=== PATIENT | female | born 1970 | race African-American/Black ===

== ENCOUNTER 2018-10-28 06:31 | Observation (INO) | payer OTHER ==
[2018-10-25 13:01] LABS: BASOPHILS # (AUTO) 0.1 (0.0-0.1); BASOPHILS % 0.6 % (0.0-1.0); EOSINOPHILS # (AUTO) 0.1 (0.0-0.4); EOSINOPHILS % 1.1 % (0.0-6.0); HEMATOCRIT 44.3 % (34.2-44.1); HEMOGLOBIN 14.4 g/dL (12.0-16.0); LYMPHOCYTES # (AUTO) 2.4 (1.0-3.2); LYMPHOCYTES % 29.3 % (18.0-39.1); MEAN CORPUSCULAR HEMOGLOBIN 28.9 pg (28-32); MEAN CORPUSCULAR HGB CONC 32.5 g/dL (31-35); MEAN CORPUSCULAR VOLUME 88.8 fL (81-99); MONOCYTES # (AUTO) 0.6 (0.2-0.8); MONOCYTES % 7.4 % (4.4-11.3); NEUTROPHILS # (AUTO) 4.9 (2.1-6.9); NEUTROPHILS % 61.4 % (38.7-80.0); PLATELET COUNT 300 x10e3/uL (140-360); RED BLOOD COUNT 4.99 x10e6/uL (3.6-5.1); RED CELL DISTRIBUTION WIDTH 13.1 % (11.7-14.4)
[2018-10-25 13:38] LABS: BLOOD UREA NITROGEN 8 mg/dL (7-26); BUN/CREATININE RATIO 11 (6-25); CALCIUM 10.6 mg/dL (8.4-10.2); CARBON DIOXIDE 21 mmol/L (22-29); CHLORIDE 104 mmol/L (98-107); EST GLOMERULAR FILTRATION RATE > 60 ML/MIN (60-); GLUCOSE 93 mg/dL (74-118); SODIUM 139 mmol/L (136-145)
[~2018-10-28] VITALS: Ht 157.5 cm; Wt 82.6 kg
[~2018-10-28 06:31] MED LIST: AMLODIPINE BESYL5 MG PO; BENICAR20 MG PO; METFORMIN HCL500 MG PO; METOPROLOL TART25 MG PO; TRULICITY SQ
--- OUTSIDE RECORDS SUMMARY | 2018-10-28 06:37 | XMS REPORT | Clinical Summary ---
Author Author [facility] Address Unknown Phone Unavailable Care Team Providers Care Help Desk Team Leader Name Role Phone Dari Carson Patricia B[employer]K [employer]LET BUILDER PCP Allergies Comments Active Allergy Reactions Severity Noted Date Blisters on her mouth Fluconazole Other (See 09/29/2015 Comments) Other reaction(s): Cough Lisinopril 09/29/2015 Skin stern Sulfa (Sulfonamide Other (See 09/29/2015 Antibiotics) Comments) Medications End Date Status Medication Sig Dispensed Refills Start Date Active CONTOUR TEST STRIPS strip USE FOR BLOOD 11 test strips SUGAR TESTING 6 THREE TIMES A DAY FOR 30 DAYS Active olmesartan-hydrochlorothi Take 1 tablet 1 azide (BENICAR HCT) 40-25 by mouth once 7 mg per tablet daily. Active metFORMIN XR Take 1,000 mg 5 (GLUCOPHAGE-XR) 500 mg 24 by mouth 2 7 hr tablet (two) times a day. Active TRULICITY 1.5 mg/0.5 mL INJECT ONCE pen injector SUBCUTANEOUSL 7 Y ONCE EVERY WEEK Active lidocaine HCl (lidocaine) 15 mL by 200 mL 0 2 % solution mucous 8 membrane route every 3 (three) hours as needed (sore throat). Active fluticasone (FLONASE) 50 2 sprays (100 15.8 mL 0 mcg/actuation nasal spray mcg total) by 8 Each Nare route daily. 03/13/2018 sertraline (ZOLOFT) 50 MG Take 1 tablet 30 tablet 0 tablet (50 mg total) 8 by mouth daily. 02/17/2018 ibuprofen (ADVIL,MOTRIN) Take 1 tablet 30 tablet 0 600 MG tablet (600 mg 8 total) by mouth every 6 (six) hours as needed for moderate pain for up to 30 days. 01/23/2018 traMADol (ULTRAM) 50 mg Take 1 tablet 12 tablet 0 tablet (50 mg total) 8 by mouth every 8 (eight) hours as needed for severe pain for up to 5 days. 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 [place] normal physical exam. Low risk surgery planned Diabetes well-controlled. Discussed diet, exercise and weight management Follow-up in the office as needed. Type 2 diabetes mellitus without complication 11/26/2015 Encounters Care Team Description Date Type Specialty Vinny Houston MD Detrusor instability of bladder 05/07/2018 Hospital Radiology Encounter Vinny Houston MD Female urethrocele without uterine prolapse 05/07/2018 Hospital Radiology Encounter Liliam Unger MD Screening breast examination 04/08/2018 Hospital Radiology Encounter Vinny Houston MD Female urethrocele without uterine prolapse (Primary Dx); Detrusor instability of bladder 04/08/2018 Transcribe Access Orders Liliam Unger MD Screening breast examination (Primary Dx) 03/05/2018 Transcribe Access Orders Eddie Segovia MD Left low back pain, unspecified chronicity, with sciatica presence unspecified (Primary Dx); Muscle spasm 01/18/2018 Emergency Emergency Medicine after 10/27/2017 Immunizations Name Administration Dates Next Due FLUZONE QUAD PF 01/18/2017 Hep A / Hep B 03/08/2009, 11/02/2008, 09/15/2008 INFLUENZA QUAD 12/01/2011, 11/19/2010, 10/29/2009, 11/02/2008 Influenza Trivalent 11/04/2015 Pneumococcal 01/19/2017, 04/22/2008 Polysaccharide TD Preservative Free 05/08/2004 Family History Medical History Relation Name Comments Diabetes Maternal Grandmother Hypertension Mother Relation Name Status Comments Father Alive Maternal Grandmother Mother Social History Date Tobacco Use Types Packs/Day Years Used Never Smoker Smokeless Tobacco: Never Used Drinks/Week oz/Week Comments Alcohol Use occ Yes Sex Assigned at Date Recorded Not on file Industry Job Start Date Occupation Not on file Not on file Not on file Travel End Travel History Travel Start No recent travel history available. Last Filed Vital Signs Reading Time Taken Comments Vital Sign 120/82 01/18/2018 3:54 PM [facility]IOR ADVIS[facility] Blood Pressure 98 01/18/2018 3:54 PM SENIOR ADVISORY Pulse 35.9 C (96.6 F) 01/18/2018 3:54 PM SENIOR ADVISORY Temperature 16 01/18/2018 3:54 PM SENIOR ADVISORY Respiratory Rate 97% 01/18/2018 3:54 PM SENIOR ADVISORY Oxygen Saturation - - Inhaled Oxygen Concentration 79.4 kg (175 lb) 01/18/2018 1:20 PM SENIOR ADVISORY Weight 157.5 cm (5' 2") 01/18/2018 1:20 PM SENIOR ADVISORY Height 32.01 01/18/2018 1:20 PM SENIOR ADVISORY Body Mass Index Plan of Treatment Health Maintenance Due Date Last Done Comments DIABETIC FOOT EXAM 1980 URINE MICROALBUMIN 04/10/2017 04/10/2016 DIABETIC RETINAL EYE EXAM 06/04/2017 06/05/2015 INFLUENZA VACCINE 09/19/2018 01/18/2017, 11/04/2015, 11/04/2015, Additional history exists CERVICAL CANCER SCREENING 09/20/2019 09/19/2016, 06/04/2015 Procedures Comments Procedure Name Priority Date/Time Associated Diagnosis US RENAL Routine 05/07/2018 Detrusor instability of 2:57 PM CDT bladder US PELVIC TRANSVAGINAL Routine 05/07/2018 Female urethrocele 2:57 PM CDT without uterine prolapse US PELVIC TRANSABDOMINAL Routine 05/07/2018 Female urethrocele 2:57 PM CDT without uterine prolapse MAMMO BREAST SCREEN Routine 04/08/2018 Screening breast TOMOSYNTHESIS BILATERAL 7:46 AM SENIOR ADVISORY examination ESTIMATED GFR STAT 01/18/2018 1:58 PM SENIOR ADVISORY LIPASE LEVEL STAT 01/18/2018 1:58 PM SENIOR ADVISORY COMPREHENSIVE METABOLIC STAT 01/18/2018 PANEL 1:58 PM SENIOR ADVISORY HC COMPLETE BLD COUNT STAT 01/18/2018 W/AUTO DIFF 1:58 PM SENIOR ADVISORY URINALYSIS SCREEN AND STAT 01/18/2018 MICROSCOPY, WITH REFLEX 1:49 PM SENIOR ADVISORY TO CULTURE after 10/27/2017 Results * US Renal (05/07/2018 2:57 PM CDT) Specimen Narrative Performed At EXAMINATION:US RENAL [facility] CLINICAL HISTORY:N32.81 Overactive bladder, n32.81 over active bladder COMPARISON:None. IMPRESSION: The right kidney asoggbvi09.9 cm in length. The left kidney noorvuvb10.3 cm in length. There is no evidence of renal mass, stone, cyst, or hydronephrosis. Echogenicity is normal. [id number] Procedure Note Interface, Radiology Results Incoming - 05/07/2018 3:03 PM CDT EXAMINATION: US RENAL CLINICAL HISTORY: N32.81 Overactive bladder, n32.81 over active bladder COMPARISON: None. IMPRESSION: The right kidney measures 10.9 cm in length. The left kidney measures 11.3 cm in length. There is no evidence of renal mass, stone, cyst, or hydronephrosis. Echogenicity is normal. [id number] Performing Organization Address City/State/Zipcode Phone Number [facility] [address] [place] [address] * US Pelvic Transabdominal (05/07/2018 2:57 PM CDT) Specimen Narrative Performed At EXAMINATION:US [facility]DOM[facility]AL [facility] CLINICAL [facility]:N81.0 Urethrocele, n81.10 COMPARISON:None. TECHNIQUE:Transabdominal and endovaginal sonographic images of the pelvis were obtained. Grayscale, color Doppler, and spectral waveform analysis of the ovarian vessels was performed. IMPRESSION: Uterus: Status post hysterectomy. Ovaries: Not visualized. No pelvic mass or fluid collection is seen. Procedure Note Interface, Radiology Results Incoming - 05/07/2018 3:04 PM CDT EXAMINATION: US PELVIC TRANSABDOMINAL CLINICAL HISTORY: N81.0 Urethrocele, n81.10 COMPARISON: None. TECHNIQUE:Transabdominal and endovaginal sonographic images of the pelvis were obtained. Grayscale, color Doppler, and spectral waveform analysis of the ovarian vessels was performed. IMPRESSION: Uterus: Status post hysterectomy. Ovaries: Not visualized. No pelvic mass or fluid collection is seen. Performing Organization Address [facility] Phone Number [facility] [address] [place] [address] * US Pelvic Transvaginal (05/07/2018 2:57 PM CDT) Specimen Narrative Performed At EXAMINATION:US PELVIC [facility]SVAGINAL [facility] CLINICAL H[facility]ORY:N81.0 Urethrocele, n81.10 COMPARISON:None. TECHNIQUE:Transabdominal and endovaginal sonographic images of the pelvis were obtained. Grayscale, color Doppler, and spectral waveform analysis of the ovarian vessels was performed. IMPRESSION: Uterus: Status post hysterectomy. Ovaries: Not visualized. No pelvic mass or fluid collection is seen. Procedure Note [facility], Radiology Results Incoming - 05/07/2018 3:04 PM CDT EXAMINATION: US PELVIC TRANSVAGINAL CLINICAL HISTORY: N81.0 Urethrocele, n81.10 COMPARISON: None. TECHNIQUE:Transabdominal and endovaginal sonographic images of the pelvis were obtained. Grayscale, color Doppler, and spectral waveform analysis of the ovarian vessels was performed. IMPRESSION: Uterus: Status post hysterectomy. Ovaries: Not visualized. No pelvic mass or fluid collection is seen. Performing Organization Address [facility] Phone Number [facility] [address] [place] [address] * Mammo Breast Screen Tomosynthesis Bilateral (04/08/2018 7:46 AM SENIOR ADVISORY) Specimen Narrative Performed At PROCEDURE: MAMMO BREAST SCREEN TOMOSYNTHESIS BILATERAL [facility] Computer aided detection was utilized for the interpretation of the digital bilateral screening mammography with tomosynthesis. COMPARISON: There is no prior studies available for comparison. DENSITY: There are scattered areas of fibroglandular density. There is no suspicious masses, architectural distortions or grouped calcifications. IMPRESSION:No mammographic evidence of malignancy. RECOMMENDATION: Comparison with physical exam and annual screening mammography. BI-RADS 1:NEGATIVE This facility is accredited by the [employer] for Mammography. A negative x-ray report should not delay biopsy if a dominant or clinically suspicious mass is present.Not all cancers are identified by x-ray. [id number] Performing Organization Address City/State/Zipcode Phone Number [facility] [address] [place] [address] * Estimated GFR (01/18/2018 1:58 PM SENIOR ADVISORY) Pathologist [facility] Estimated GFR >=90 mL/min/1.73 m2 [place] Comment: [facility] G1 >=90 Normal or high G2 60-89Mildly decreased O3x30-87 Mildly to moderately decreased [id number] Moderately to severely decreased G4 15-29Severely decreased G5 <15Kidney failure The eGFR was calculated using the Chronic Kidney Disease Epidemiology Collaboration (CKD-EPI) equation. Interpretation is based on recommendations of the National Kidney Foundation-Kidney Disease Outcomes Quality Initiative (NKF-KDOQI) published in 2014. Specimen Plasma specimen Performing Organization Address City/State/Zipcode Phone Number [facility] [address] [place] [address] PATHOLOGY AND GENOMIC MEDICINE [place] [address] [place], [place] [id number] [place] [address] * CBC with platelet and differential (01/18/2018 1:58 PM SENIOR ADVISORY) [facility] WBC 9.7 4.2 - 11.0 k/uL [facility] RBC 4.71 4.04 - 5.86 m/uL [facility] HGB 13.9 11.5 - 15.3 g/dL [facility] HCT 42.9 34.0 - 45.0 % [facility] MCV 91.1 80.0 - 98.0 fL [facility] MCH 29.5 27.0 - 34.0 pg [facility] MCHC 32.4 31.5 - 36.5 g/dL [facility] RDW - SD 41.1 37.0 - 51.0 fL [facility] MPV 10.2 7.4 - 10.4 fL [facility] Platelet count 288 150 - 400 k/uL [facility] Nucleated RBC 0.00 /100 WBC [facility] Neutrophils 64.7 36.0 - 66.0 % [facility] Lymphocytes 26.9 24.0 - 44.0 % [facility] Monocytes 6.8 (H) 0.0 - 6.0 % [facility] Eosinophils 0.9 0.0 - 6.0 % [facility] Basophils 0.3 0.0 - 1.2 % [facility] Immature 0.4 0.0 - 1.0 % [place] granulocytes [facility] Specimen Blood Performing Organization Address City/[facility] Centercode Phone Number [facility] [place] [address] PATHOLOGY AND GENOMIC MEDICINE [address] * Lipase level (01/18/2018 1:58 PM SENIOR ADVISORY) [facility] Lipase 35 13 - 60 U/L [facility] Specimen Plasma specimen Performing Organization Address City/[facility] Centercode Phone Number [facility] [place] [address] PATHOLOGY AND GENOMIC MEDICINE [address] * Comprehensive metabolic panel (01/18/2018 1:58 PM SENIOR ADVISORY) [facility] Sodium 141 135 - 150 mEq/L [facility] Potassium 4.0 3.5 - 5.0 mEq/L [facility] Chloride 100 98 - 112 mEq/L [facility] CO2 26 24 - 31 mmol/L [facility] Anion gap 15@ANIO 7 - 15 mEq/L [facility] BUN 9 7 - 18 mg/dL [facility] Creatinine 0.60 0.50 - 0.90 mg/dL [facility] Glucose 105 (H) 65 - 100 mg/dL [facility] Calcium 10.0 8.3 - 10.2 mg/dL [facility] Protein 8.0 6.3 - 8.3 g/dL [facility] Albumin 4.3 3.5 - 5.0 g/dL [facility] A/G ratio 1.2 0.7 - 3.8 [facility] Alkaline 80 0 - 104 U/L [place] phosphatase [facility] AST 24 10 - 35 U/L [facility] ALT 24 5 - 50 U/L [facility] Total bilirubin 0.4 0.2 - 1.2 mg/dL [facility] Specimen Plasma specimen Performing Organization Address City/[facility] Centercode Phone Number [facility] [address] [place] [phone] PATHOLOGY AND GENOMIC MEDICINE [facility] [address] * Urinalysis screen and microscopy, with reflex to culture (01/18/2018 1:49 PM SENIOR ADVISORY) Specimen site Clean catch [facility] Color, UA Straw [facility] Appearance, UA Clear [facility] Specific 1.005 1.001 - 1.035 [place] gravity, [facility] pH, UA 5.0 5.0 - 8.5 [facility] Protein, UA Negative Negative [facility] Glucose, UA Negative Negative [facility] Ketones, UA Negative Negative [facility] Bilirubin, UA Negative Negative [facility] Blood, UA Negative Negative [facility] Nitrite, UA Negative Negative [facility] Urobilinogen, Negative <2.0 [facility] Leukocyte Negative Negative [place] esterase, UA [facility] Epithelial Few /HPF [place] cells, UA [facility] WBC, UA <1 0 - 5 /HPF [facility] RBC, UA <1 0 - 5 /HPF [facility] Bacteria, UA Trace None seen [facility] Yeast, UA None seen [facility] Yeast with None seen [place] [facility] Specimen Urine Performing Organization Address City/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
[2018-10-28] MEDS ORDERED: DEXAMETHASONE SOD PHOS 10 MG/1 ML VIAL ONE (06:44)
[2018-10-28] MEDS ORDERED: CELECOXIB 200 MG CAP ONE (06:44)
[2018-10-28] MEDS ORDERED: CEFAZOLIN SOD 1 GM/NS 50ML 100 ML IV ONE (06:45)
[2018-10-28] MEDS ORDERED: GABAPENTIN 300 MG CAP ONE (06:45)
[2018-10-28] MEDS ORDERED: ROPIVACAINE 246.25 MG, EPINEPHRINE HCL 1:1000 1ML 0.5 MG, CLONIDINE HCL 0.08 MG, KETORO... INJ ONE ×5 (07:30)
[2018-10-28] MEDS ORDERED: TRANEXAMIC ACID 1,000 MG/10 ML ML ONE (08:34)
[2018-10-28] MEDS ORDERED: VANCOMYCIN HCL 1,000 MG ONE (08:34)
[2018-10-28] MEDS ORDERED: SODIUM CHLORIDE 0.9% 500ML 500 ML ONE (08:34)
[2018-10-28] MEDS ORDERED: BACITRACIN 50,000 UNIT VIAL ONE (08:35)
[2018-10-28] MEDS: SODIUM CHLORIDE 0.9% 1000ML 1,000 ML IV SCH ×3 (10:29→20:29)
[2018-10-28] MEDS ORDERED: PROMETHAZINE HCL (IM) 25 MG/ML VIAL INJ PRN (10:30)
[2018-10-28] MEDS ORDERED: ONDANSETRON HCL INJ 2MG/ML 2ML 2 MG/ML VIAL IV PRN (10:30)
[2018-10-28] MEDS ORDERED: DIPHENHYDRAMINE HCL INJ 50 MG/ML VIAL IM/IV PRN (10:30)
[2018-10-28] MEDS ORDERED: DOCUSATE SODIUM 100 MG CAP PO PRN (10:30)
[2018-10-28] MEDS ORDERED: HYDROCODONE/APAP 5MG-325MG TAB PO PRN (10:30)
[2018-10-28] MEDS ORDERED: KETOROLAC TROMETHAMINE 30 MG/ML VIAL IV PRN (10:30)
[2018-10-28] MEDS ORDERED: ZOLPIDEM TARTRATE 5 MG TAB PO PRN (10:30)
[2018-10-28] MEDS ORDERED: ACETAMINOPHEN 650 MG SUPP PR PRN (10:30)
--- OUTSIDE RECORDS SUMMARY | 2018-10-28 10:58 | XMS REPORT | Clinical Summary ---
Author Author [employer] Organization [employer] Address Unknown Phone Unavailable Care Team Providers Care Regional Extension Service Specialist Name Role Phone Dari Carson Patricia TRANSIT PLANNING MANAGER PCP Allergies Comments Active Allergy Reactions Severity [...] acute complaints who presents for preop clearance. [place] normal physical exam. Low risk surgery planned [...] Comments Vital Sign 120/82 01/18/2018 3:54 PM INJECTION MOLDING MACHINE OPERATOR Blood Pressure 98 01/18/2018 3:54 PM INJECTION MOLDING MACHINE OPERATOR Pulse 35.9 C (96.6 F) 01/18/2018 3:54 PM INJECTION MOLDING MACHINE OPERATOR Temperature 16 01/18/2018 3:54 PM INJECTION MOLDING MACHINE OPERATOR Respiratory Rate 97% 01/18/2018 3:54 PM INJECTION MOLDING MACHINE OPERATOR Oxygen Saturation - - Inhaled Oxygen Concentration 79.4 kg (175 lb) 01/18/2018 1:20 PM INJECTION MOLDING MACHINE OPERATOR Weight 157.5 cm (5' 2") 01/18/2018 1:20 PM INJECTION MOLDING MACHINE OPERATOR Height 32.01 01/18/2018 1:20 PM INJECTION MOLDING MACHINE OPERATOR Body Mass Index Plan of Treatment Health [...] 04/08/2018 Screening breast TOMOSYNTHESIS BILATERAL 7:46 AM INJECTION MOLDING MACHINE OPERATOR examination ESTIMATED GFR STAT 01/18/2018 1:58 PM INJECTION MOLDING MACHINE OPERATOR LIPASE LEVEL STAT 01/18/2018 1:58 PM INJECTION MOLDING MACHINE OPERATOR COMPREHENSIVE METABOLIC STAT 01/18/2018 PANEL 1:58 PM INJECTION MOLDING MACHINE OPERATOR HC COMPLETE BLD COUNT STAT 01/18/2018 W/AUTO DIFF 1:58 PM INJECTION MOLDING MACHINE OPERATOR URINALYSIS SCREEN AND STAT 01/18/2018 MICROSCOPY, WITH REFLEX 1:49 PM INJECTION MOLDING MACHINE OPERATOR TO CULTURE after 10/27/2017 Results * US Renal (05/07/2018 2:57 PM CDT) Specimen Narrative Performed At EXAMINATION:US RENAL [facility] CLINICAL HISTORY:N32.81 Overactive bladder, n32.81 over active bladder COMPARISON:None. IMPRESSION: The right kidney tekfdxsl12.9 cm in length. The left kidney .3 cm in length. There is no evidence of renal mass, stone, cyst, or hydronephrosis. Echogenicity is normal. [id number] Procedure Note Interface, Radiology Results Incoming - 05/07/2018 3:03 PM CDT EXAMINATION: US RENAL CLINICAL HISTORY: N32.81 Overactive bladder, n32.81 over active bladder COMPARISON: None. IMPRESSION: The right kidney measures 10.9 cm in length. The left kidney measures 11.3 cm in length. There is no evidence of renal mass, stone, cyst, or hydronephrosis. Echogenicity is normal. [id number] Performing Organization Address City/State/Zipcode Phone Number [facility] [address] [place] [address] * US Pelvic Transabdominal (05/07/2018 2:57 PM CDT) Specimen Narrative Performed At EXAMINATION:US PELVIC [facility]DOMINAL [facility] CLINICAL H[facility]ORY:N81.0 Urethrocele, n81.10 COMPARISON:None. TECHNIQUE:Transabdominal and [...] fluid collection is seen. Performing Organization Address [facility] Phone Number [facility] [address] [place] [address] * US Pelvic Transvaginal (05/07/2018 2:57 PM CDT) Specimen Narrative Performed At EXAMINATION:US PELVIC [facility]SVAGINAL [facility] CLINICAL HISTORY:N81.0 Urethrocele, n81.10 COMPARISON:None. TECHNIQUE:Transabdominal and endovaginal sonographic images of the pelvis were obtained. Grayscale, color Doppler, and spectral waveform analysis of the ovarian vessels was performed. IMPRESSION: Uterus: Status post hysterectomy. Ovaries: Not visualized. No pelvic mass or fluid collection is seen. Procedure Note [facility], Radiology Results Incoming - 05/07/2018 3:04 PM CDT EXAMINATION: US PELVIC TRANSVAGINAL CLINICAL HISTORY: N81.0 Urethrocele, n81.10 COMPARISON: None. TECHNIQUE:Transabdominal and endovaginal sonographic images of the pelvis were obtained. Grayscale, color Doppler, and spectral waveform analysis of the ovarian vessels was performed. IMPRESSION: Uterus: Status post hysterectomy. Ovaries: Not visualized. No pelvic mass or fluid collection is seen. Performing Organization Address [facility] [place] Phone Number [facility] [address] [place] [address] * Mammo Breast Screen Tomosynthesis Bilateral (04/08/2018 7:46 AM INJECTION MOLDING MACHINE OPERATOR) Specimen Narrative Performed At PROCEDURE: MAMMO BREAST SCREEN TOMOSYNTHESIS BILATERAL [facility] Computer aided detection was utilized for the [...] 1:NEGATIVE This facility is accredited by the [employer] for Mammography. A negative x-ray report should not delay biopsy if a dominant or clinically suspicious mass is present.Not all cancers are identified by x-ray. [id number] Performing Organization Address City/State/Zipcode Phone Number [facility] [address] [place] [address] * Estimated GFR (01/18/2018 1:58 PM INJECTION MOLDING MACHINE OPERATOR) Pathologist [facility] Estimated GFR >=90 mL/min/1.73 m2 [place] Comment: [facility] G1 >=90 Normal or high G2 60-89Mildly decreased [id number] Mildly to moderately decreased [id number] Moderately to severely decreased G4 15-29Severely decreased G5 <15Kidney failure The eGFR was calculated using the Chronic Kidney Disease Epidemiology Collaboration (CKD-EPI) equation. Interpretation is based on recommendations of the National Kidney Foundation-Kidney Disease Outcomes Quality Initiative (NKF-KDOQI) published in 2014. Specimen Plasma specimen Performing Organization Address City/State/Zipcode Phone Number [facility] [address] [place] [address] PATHOLOGY AND GENOMIC MEDICINE [place] [address] [place], [place] [id number] [place] [address] * CBC with platelet and differential (01/18/2018 1:58 PM INJECTION MOLDING MACHINE OPERATOR) [facility] WBC 9.7 4.2 - 11.0 k/uL [facility] RBC 4.71 4.04 - 5.86 m/uL [facility] HGB 13.9 11.5 - 15.3 g/dL [facility] HCT 42.9 34.0 - 45.0 % [facility] MCV 91.1 80.0 - 98.0 fL [facility] MCH 29.5 27.0 - 34.0 pg [facility] MCHC 32.4 31.5 - 36.5 g/dL [facility] RDW - SD 41.1 37.0 - 51.0 fL [facility] MPV 10.2 7.4 - 10.4 fL [facility] Platelet count 288 150 - 400 k/uL [facility] Nucleated RBC 0.00 /100 WBC [facility] Neutrophils 64.7 36.0 - 66.0 % [facility] Lymphocytes 26.9 24.0 - 44.0 % [facility] Monocytes 6.8 (H) 0.0 - 6.0 % [facility] Eosinophils 0.9 0.0 - 6.0 % [facility] Basophils 0.3 0.0 - 1.2 % [facility] Immature 0.4 0.0 - 1.0 % [place] granulocytes [facility] Specimen Blood Performing Organization Address City/[facility] Phone Number [facility] DEPARTMENT OF [facility] [place] [address] PATHOLOGY AND GENOMIC MEDICINE [address] * Lipase level (01/18/2018 1:58 PM INJECTION MOLDING MACHINE OPERATOR) [facility] Lipase 35 13 - 60 U/L [facility] Specimen Plasma specimen Performing Organization Address City/[facility] Phone Number [facility] [place] [address] PATHOLOGY AND GENOMIC MEDICINE [address] * Comprehensive metabolic panel (01/18/2018 1:58 PM INJECTION MOLDING MACHINE OPERATOR) [facility] Sodium 141 135 - 150 mEq/L [facility] Potassium 4.0 3.5 - 5.0 mEq/L [facility] Chloride 100 98 - 112 mEq/L [facility] CO2 26 24 - 31 mmol/L [facility] Anion gap 15@ANIO 7 - 15 mEq/L [facility] BUN 9 7 - 18 mg/dL [facility] Creatinine 0.60 0.50 - 0.90 mg/dL [facility] Glucose 105 (H) 65 - 100 mg/dL [facility] Calcium 10.0 8.3 - 10.2 mg/dL [facility] Protein 8.0 6.3 - 8.3 g/dL [facility] Albumin 4.3 3.5 - 5.0 g/dL [facility] A/G ratio 1.2 0.7 - 3.8 [facility] Alkaline 80 0 - 104 U/L [place] phosphatase [facility] AST 24 10 - 35 U/L [facility] ALT 24 5 - 50 U/L [facility] Total bilirubin 0.4 0.2 - 1.2 mg/dL [facility] Specimen Plasma specimen Performing Organization Address City/[facility] Phone Number [facility] DEPARTMENT OF [address] [place] [id number] PATHOLOGY AND GENOMIC MEDICINE [facility] [address] * Urinalysis screen and microscopy, with reflex to culture (01/18/2018 1:49 PM INJECTION MOLDING MACHINE OPERATOR) Specimen site Clean catch [facility] Color, UA Straw [facility] Appearance, UA Clear [facility] Specific 1.005 1.001 - 1.035 [place] gravity, [facility] pH, UA 5.0 5.0 - 8.5 [facility] Protein, UA Negative Negative [facility] Glucose, UA Negative Negative [facility] Ketones, UA Negative Negative [facility] Bilirubin, UA Negative Negative [facility] Blood, UA Negative Negative [facility] Nitrite, UA Negative Negative [facility] Urobilinogen, Negative <2.0 [facility] Leukocyte Negative Negative [place] esterase, UA [facility] Epithelial Few /HPF [place] cells, UA [facility] WBC, UA <1 0 - 5 /HPF [facility] RBC, UA <1 0 - 5 /HPF [facility] Bacteria, UA Trace None seen [facility] Yeast, UA None seen [facility] Yeast with None seen [place] [facility] Specimen Urine Performing Organization Address City/[facility]/Zipcode Phone Number [facility] DE[facility] OF [address] [place] [address] PATHOLOGY AND GENOMIC MEDICINE 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
[2018-10-28] MEDS ORDERED: HYDROMORPHONE 2MG/ML 2 MG/ML ML ONE (11:28)
--- NOTE | 2018-10-28 11:50 | Diagnostic Imaging Report ---
EXAMINATION: KNEE RIGHT 1-2 VIEWS INDICATION: Postoperative COMPARISON: None FINDINGS: Portable AP and lateral radiographs of the left knee demonstrate postoperative findings of left total knee replacement. Alignment is anatomic. No unexpected fracture. Subcutaneous postoperative emphysema. Surgical skin aram in place. IMPRESSION: Anatomic alignment status post left total knee replacement. Signed by: Roosevelt Subramanian MD on 10/28/2018 11:47 AM
[2018-10-28] MEDS: ACETAMINOPHEN 1000 MG/100 ML IV SCH ×3 (12:31→23:47)
[2018-10-28 12:51] VITALS: BP 99/64
[2018-10-28 13:02] VITALS: BP 99/64
[2018-10-28 13:03] VITALS: BP 99/64
[2018-10-28] MEDS ORDERED: LIDOCAINE HCL 2% LOCAL 20 ML VIAL ONE (13:54)
[2018-10-28] MEDS ORDERED: ROPIVACAINE 0.5% 5 MG/ML 30 ML SDV ONE (13:54)
[2018-10-28] MEDS ORDERED: VASOPRESSIN INJ 20 UNIT/ML VIAL ONE (14:23)
[2018-10-28] MEDS ORDERED: ALBUTEROL SULFATE HFA 8GM INHALATION AEROSOL INH ONE (14:23)
[2018-10-28] MEDS ORDERED: ONDANSETRON HCL INJ 2MG/ML 2ML 2 MG/ML VIAL ONE (14:23)
[2018-10-28] MEDS ORDERED: PROPOFOL IV EMULSION 10 MG/ML 20 ML VIAL ONE (14:23)
[2018-10-28] MEDS ORDERED: DEXAMETHASONE SOD PHOS INJ 4 MG/ML VIAL ONE (14:23)
[2018-10-28] MEDS ORDERED: LIDOCAINE HCL 2% LOCAL INJ 5 ML SDV VIAL INJ ONE (14:23)
[2018-10-28] MEDS ORDERED: SEVOFLURANE INHAL SOLN 250 ML PEN BTL ONE (14:23)
--- NOTE | 2018-10-28 15:43 | NUR ---
Called Dr. Jason Horton, spoke with hue to relate message to Dr. Horton consult for medical management.
--- NOTE | 2018-10-28 16:44 | Operative Report ---
DATE OF PROCEDURE: 10/28/2018 SURGEON: Geoffrey Galicia MD TIP MENDER: Franki Santamaria, certified PA. PREOPERATIVE DIAGNOSIS: Osteoarthritis, right knee * previously operated knee. POSTOPERATIVE DIAGNOSIS: Osteoarthritis, right knee * previously operated knee. PROCEDURE: Right knee hardware removal with conversion to total knee arthroplasty. INDICATIONS: The patient is a 48-year-old lady with severe end-stage arthritis of her right knee. She is status post an ACL reconstruction many years ago. She has had progressive pain consistent with advanced arthritis in her right knee. She states the symptoms are severely compromising her quality of life. The risks and benefits of hardware removal with conversion to total knee replacement have been discussed. She states she understands and wishes to proceed. PROCEDURE IN DETAIL: The patient was brought to the operating room and placed under general anesthetic. She received prophylactic antibiotics, tranexamic acid, and a regional block in the holding area. Her right lower extremity was prepped and draped in a sterile manner. A preoperative time-out was performed. The extremity was exsanguinated and a proximal tourniquet was inflated to 300 mmHg. An anterior incision with slight increased distal exposure was made. A medial parapatellar arthrotomy was performed. Clear synovial fluid was removed from the joint. Soft tissue releases were performed to expose the proximal tibial hardware and to allow the patella to jacky. A metal interference screw and a bone staple were carefully exposed. These were removed without any additional bone destruction. There were no signs of any infection or other abnormalities. The bone was densely sclerotic around both pieces of hardware. The knee was brought up into flexion with the patella everted. The ACL reconstruction was chronically absent. There was complete loss of articular cartilage with polished subchondral bone in both the medial and lateral compartment. Large marginal osteophytes were noted and removed. The proximal tibia was carefully exposed. Meniscal remnants were removed. An extramedullary cutting guide was used to resect the proximal tibia. The slope was dialed in to match the existing slope. The tibial base plate was a size D. The central fin punch was drilled and impacted. Attention was directed towards the distal femur. An intramedullary cutting guide was used to resect the distal femur in 5 degrees of valgus and rotation referencing off a combination of landmarks including Whitesides line, the epicondylar axis and the posterior condyles. The femoral component was a size number 6. The anterior and posterior cuts were made. All bone cuts were irrigated with a spray mixture of diluted polymyxin and vancomycin spray. The anterior and posterior cuts were made of the bone. A size 6 trial femur was placed. Trial reductions were performed. A 10 mm medial congruent tibial insert provided appropriate soft tissue balancing and 90 degrees of flexion and full extension. The patella was resurfaced with a 29 mm x 8 mm patellar button. The thickness was checked before and after and it was right around 19 mm. Patellar tracking was noted to be concentric. The trial implants were then all removed. A 100 mL premixed pericapsular SILVER injection was placed around the surrounding soft tissue. The knee was thoroughly irrigated with a shower tip pulsatile lavage. The components were cemented into place using a single mix of Palacos cement preloaded with antibiotics. The knee was further irrigated while the cement cured. A 500 mg of vancomycin powder was placed into the joint. The arthrotomy was carefully closed with interrupted #1 Ethibond. The knee was put through flexion and extension to ensure a secure closure. The skin was closed with subcuticular Vicryl and aram. A sterile Aquacel bandage was applied. Blood loss was minimal. All needle and sponge counts were correct. Geoffrey Galicia MD DR/[facility] /[id number]
[2018-10-28] MEDS: CEFAZOLIN SOD 1 GM/NS 50ML 50 ML IV SCH (17:24)
[2018-10-28] MEDS: ASPIRIN 325 MG TAB PO SCH (17:24)
[2018-10-28] MEDS: CELECOXIB 200 MG CAP PO SCH (17:24)
[2018-10-28 17:33] VITALS: BP 112/62
--- NOTE | 2018-10-28 17:34 | NUR ---
DR JONES OFFICE PREARRANGED FOLLOWING DISCHARGE PLAN OF: GOING HOME TO ADDRESS [id number], [facility] [address] [place] [phone] IS [place] [phone] HOME HEALTH WITH HOME CARE PROVIDERS CONFIRMED WITH KORY LUIS [phone] DME 3 IN ONE COMMODE. CPM AND ROLLING WALKER WITH WHEELS. PROVIDED BY [employer] DELIVERED TO ROOM
[2018-10-28] MEDS: HYDROCODONE/APAP 7.5MG-325MG 1 EA TAB PO PRN ×2 (18:12→22:46)
[2018-10-28] MEDS ORDERED: MIDAZOLAM HCL 2 MG/2 ML VIAL ONE (18:26)
[2018-10-28] MEDS ORDERED: FENTANYL CITRATE/PF 100MCG/2 ML INJ ONE (18:26)
[2018-10-28 19:05] VITALS: BP 107/55
--- NOTE | 2018-10-28 19:10 | NUR ---
Walking rounds done and report received. Patient is awake, alert and able to make needs known. Lots of family at the bedside. She is tolerating CPM 0-50, right knee dressing intact, and all questions answered at this time. Patient instructed to call for assistance as needed and verbalized understanding. Bed in lowest position, locked and call ibarra within reach.
[2018-10-28 20:32] VITALS: BP 107/55
[2018-10-29] VITALS: BP 102/58
[2018-10-29] MEDS: CEFAZOLIN SOD 1 GM/NS 50ML 50 ML IV SCH ×2 (00:55→08:11)
--- NOTE | 2018-10-29 04:30 | NUR ---
Dr. Horton making rounds at bedside.
[2018-10-29] MEDS: HYDROCODONE/APAP 7.5MG-325MG 1 EA TAB PO PRN (04:58)
[2018-10-29 05:07] VITALS: BP 108/62
[2018-10-29 05:20] LABS: HEMATOCRIT 33.3 % (34.2-44.1); HEMOGLOBIN 10.6 g/dL (12.0-16.0)
[2018-10-29] MEDS: SODIUM CHLORIDE 0.9% 1000ML 1,000 ML IV SCH (06:29)
[2018-10-29] MEDS: ACETAMINOPHEN 1000 MG/100 ML IV SCH (06:43)
--- NOTE | 2018-10-29 07:06 | NUR ---
Walking rounds done and report given. Call ibarra within reach.
[2018-10-29 07:15] VITALS: BP 113/73
[2018-10-29] MEDS: ASPIRIN 325 MG TAB PO SCH (08:08)
[2018-10-29] MEDS: CELECOXIB 200 MG CAP PO SCH (08:08)
[2018-10-29 08:10] VITALS: BP 113/73
--- NOTE | 2018-10-29 08:27 | NUR ---
patient requested half dose of Benicar, given 20mg at patients request.
--- NOTE | 2018-10-29 08:33 | Consultation ---
DATE OF CONSULTATION: REASON FOR CONSULTATION: Postop medical management. HISTORY OF PRESENT ILLNESS: The patient is a lady, who is status post right knee arthroplasty for end-stage osteoarthritis. She is doing well postoperatively with minimal pain in her right knee and states that she denies any chest pain, fever, chills, headaches, nausea, vomiting, or shortness of breath on review of systems. PAST MEDICAL HISTORY: Hypertension and diabetes. MEDICATIONS: See APR. ALLERGIES: SEE APR. SOCIAL HISTORY: Nonsmoker. Nondrinker. FAMILY HISTORY: Hypertension. PHYSICAL EXAMINATION: VITAL SIGNS: Temperature is 98.6, pulse 74, blood pressure 136/74 sats 98% on room air. GENERAL: She is in no apparent distress, lying in bed. NECK: Supple. No lymphadenopathy. CARDIOVASCULAR: Regular rate and rhythm. LUNGS: Clear to auscultation bilaterally. ABDOMEN: Good bowel sounds. Soft and nontender. EXTREMITIES: No clubbing or cyanosis. NEUROLOGIC: Nonfocal. ASSESSMENT AND PLAN: 1. Status right knee arthroplasty. We will continue with postoperative care. 2. Right knee pain. We will continue with current care since it is minimal, we will start with physical therapy. 3. Diabetes. Continue to monitor sugar and started her on home medication. 4. Anemia. Check a CBC. 5. Hypertension. We will continue with her home medication and follow up blood pressures. Please see hospital chart for full details. MD JEAN CARLOS Moreno/[place] /[id number]
[2018-10-29] MEDS ORDERED: METFORMIN HCL 500 MG TAB PO SCH (09:00)
[2018-10-29] MEDS ORDERED: METOPROLOL TARTRATE 25 MG TAB PO SCH (09:00)
[2018-10-29] MEDS ORDERED: AMLODIPINE BESYLATE 5 MG TAB PO SCH (09:00)
[2018-10-29] MEDS ORDERED: OLMESARTAN 20 MG TAB PO SCH (09:00)
[2018-10-29] MEDS ORDERED: ACETAMINOPHEN 1000 MG/100 ML IV PRN (10:30)
[2018-10-29] MEDS ORDERED: ASPIRIN325 MG PO (10:50)
--- NOTE | 2018-10-29 11:40 | NUR ---
PATIENT VERBALIZED UNDERSTANDING OF D/C INSTRUCTIONS.
== END 2018-10-29 11:40 | disposition home or self-care (01) ==
LOC: OR 06:31 → PACU V 10:31 → IMCU 12:00
PROVIDERS: ADMIT Specialist; ATTEND Specialist
DX: M17.31 Unilateral post-traumatic osteoarthritis, right knee (principal); T84.196A Other mechanical complication of internal fixation device of bone of right lower leg, initial encounter; Z88.2 Allergy status to sulfonamides; Z88.8 Allergy status to other drugs, medicaments and biological substances; E11.9 Type 2 diabetes mellitus without complications; D64.9 Anemia, unspecified; I10 Essential (primary) hypertension; Z82.49 Family history of ischemic heart disease and other diseases of the circulatory system; Z79.84 Long term (current) use of oral hypoglycemic drugs
CPT/HCPCS: 20680; 27447; 36415 ×3; 73560; 80048; 82948 ×2; 85014; 85018; 85025; 86850; 86900; 86920; 97110; 97116 ×2; 97161; 97530 ×2; C1713; G0378 ×2; J0131 ×2; J0171; J0690 ×2; J1100; J1170; J1885 ×2; J2001; J2250; J2795; J3010; J3370; J7030; J7040; C1776; J2405